=== PATIENT | female | born 1990 | race Caucasian/White ===

== ENCOUNTER 2025-02-23 12:28 | Emergency (ER) | payer SELFPAY ==
--- OUTSIDE RECORDS SUMMARY | 2025-02-24 10:25 | XMS_ITS | Encounter Summary ---
Author Organization [facility] Address [address] [facility] [place] [address] Phone Care Team Providers Care Comb Tender Name Role Phone Marla Vail APRN, CNP Primary Care P rovider Reason for Visit * Reason Comments Medication Refill Encounter Details Date Type Department Care Team (Late st Contact Info) Description 07/18/2022 Refill [facility] - Primary Care - [place] [address] [place] [address] Marla Vail APRN, CNP [address] [place] [address] Medication Refill Social History Tobacco Use Types Packs/Day Years Used Date Smoking Tobacco: Never Smokeless Tobacco: Never Alcohol Use Standard Drinks/Week Comments Yes 0 (1 standard drink = 0.6 oz pur e alcohol) Occasionally AUDIT-C Answer Date Recorded Frequency of Alcohol Consumption Never 12/19/2018 Average Number of Drinks Not on file 019 Frequency of Binge Drinking Not on file 12/09 PHQ-2 Answer Date Recorded Total Score - Questions 1-9 0 06/11 Education Answer Date Recorded What is the highest level of school you have completed or the highest degree you have received? Some college, no degree 06/17/2022 Sexually Active Control Partners Comments Yes I.U.D. Male Comments No Sex and Gender Information Value Date Recorded Sex Assigned at Not on file Legal Sex Female 12:14 AM CDT Gender Identity Not on file Sexual Orientation Not on file COVID-19 Exposure Response Date Recorded In the last 10 days, have yo u been in contact with someone who was confirmed or suspected to have Coronavirus/COVID-19? No / Unsure 06/23/2022 3:33 PM CDT documented as of this encounter Miscellaneous Notes * Telephone Encounter - Linda King RN - 07/20/2022 9:51 AM CDT Medication discontinued 07/13/2022-dose adjustment. documented in this encounter Plan of Treatment Not on file documented as of this encounter Visit Diagnoses Diagnosis Class 2 severe obesity due to excess calories with serious comorbidity and body mass index (BMI) of 38.0 to 38.9 in adult (HCC) documented in this encounter Care Teams Comb Tender Relationship Specialty Start Date End Date Marla Vail APRN, TOUR BUS DRIVER [address] [place] [address] PCP - General Advanced Practice Nurse 06/23/22 documented as of this encounter
--- OUTSIDE RECORDS SUMMARY | 2025-02-24 10:25 | XMS_ITS | Referral Summary ---
Author Organization [facility] Address [address] [place] [id number] Phone Care Team Providers Care Environmental Manager Name Role Phone Marla Vail NP Primary Care Provide r Allergies Active Allergy Reactions Criticality Noted Date Comments Prednisone Vomiting Reaction: Vomit, Medications lisinopriL (PRINIVIL,ZESTRI L) 10 mg tablet Take 1 tablet (10 mg total) by mouth daily 12/16/2022 Active PNV #[id number] acid-dha 35 mg iron-5 mg iron-1 mg capsuleIndicatio ns:Prevention of Neural Tube Defects Take 1 tablet/caps ule by mouth daily 30 capsule 11 09/04/2024 Active Active Problems Problem Noted Date Diagnosed Date Encounter for insertion of Mirena IUD 10/22/2017 Assessment & Plan (10/22/2017 8:03 AM GENETIC TECHNOLOGIST): Urine negative. Please see IUD insertion note. Anxiety 07/12/2017 Assessment & Plan (07/12/2017 8:29 AM CDT): Has done well with lexapro. Will continue Primary insomnia 07/12/2017 Assessment & Plan (07/12/2017 8:30 AM CDT): Will increase Melatonin to 8mg nightly. Encounter for contraceptive management 7 Assessment & Plan (10/22/2017 8:02 AM GENETIC TECHNOLOGIST): Urine test negative. Please see IUD procedure note. Assessment & Plan (07/12/2017 8:29 AM CDT): Has appt set up with Dr. De La Fuente for removal. Planning to start OCPs after. Will send RX into pharmacy BMI 32.0-32.9,adult 07/12/2017 Assessment & Plan (10/22/2017 8:04 AM GENETIC TECHNOLOGIST): Obesity is unchanged. Discussed the patient's BMI. The BMI is above average; BMI management plan is completed. General weight loss/lifestyle modification strategies discussed (elicit support from others; identify saboteurs; non-food rewards, etc). Planning to restart diet with Dr. Shey Chaudhari along with increase in exercise. Assessment & Plan (07/12/2017 8:56 AM CDT): Obesity is increased since last OV, but states has lost 8 lbs. . Discussed the patient's BMI. The BMI is above average; BMI management plan is completed. General weight loss/lifestyle modification strategies discussed (elicit support from others; identify saboteurs; non-food rewards, etc). Immunizations Immunization Administration Dates Next Due DTP 01/28/1996, 3,1991,07/08,1991 Hep B, Adolescent or Pediatric 01/11/2002,2000,05/09/2001 Hib (HbOC) 07/15/1992, 1,1991,04/03 Influenza, Quadrivalent, Spl it, Preservative Free, Intramuscular 07/12/2017 MMR 01/28/1996,07/15/1992 Meningococcal Polysaccharide (Menomune) 05/25/2007 OPV 01/28/1996, 3,1991,07/08,1991 Tdap 04/15/2005 Social History Tobacco Use Types Packs/Day Years Used Date Smoking Tobacco: Never Smokeless Tobacco: Never Tobacco Cessation:Counseling Given: Not Answered Alcohol Use Standard Drinks/Week Comments Yes 0 (1 standard drink = 0.6 oz pur e alcohol) rarely Humiliation, Afraid, Rape, and Kick questionnair e Answer Date Recorded Within the last year, have y ou been afraid of your partner or ex-partner? No 09/23/2023 Within the last year, have y ou been humiliated or emotionally abused in other ways by your partner or ex-partner? No Within the last year, have y ou been kicked, hit, slapped, or otherwise physically hurt by your partner or ex-partner? No 09/23/2023 Within the last year, have y ou been raped or forced to have any kind of sexual activity by your partner or ex-partner? No 09/23/2023 PHQ-2 Answer Date Recorded PHQ-2 Total Score (If total score is 3 or more points, staff should administer the PHQ-9) 0 09/23/2023 Comments No Sex and Gender Information Value Date Recorded Sex Assigned at Not on file Legal Sex Female 10:21 AM GENETIC TECHNOLOGIST Gender Identity Not on file Sexual Orientation Not on file Occupation Industry Job Start Date Job End Date Peer wellness Not on file Not on file Not on file Last Filed Vital Signs Vital Sign Reading Time Taken Comments Blood Pressure 128/82 07/25/2024 12:56 PM CDT Pulse 78 09/29/2023 12:07 PM GENETIC TECHNOLOGIST Temperature 36.2 C (97.1 F) 09/29/2023 12:07 PM GENETIC TECHNOLOGIST Respiratory Rate 14 09/29/2023 12:07 PM GENETIC TECHNOLOGIST Oxygen Saturation 98% 09/29/2023 12:07 PM GENETIC TECHNOLOGIST Inhaled Oxygen Concentration - - Weight 108.9 kg (240 lb) 07/25/2024 12:56 PM CDT Height 170.2 cm (5' 7 ) 07/25/2024 12:56 PM CDT Body Mass Index 37.59 07/25/2024 12:56 PM CDT Plan of Treatment Not on file Insurance * Guarantor: Jing De Jesus Account Type Relation to Patient Date of Phone Billing Address Personal/Family Self [address] [place] [phone] [facility] CHOICE PLUS [facility] HMO/PPO Address: [place] [address] * Guarantor: Jing De Jesus Account Type Relation to Patient Date of Phone Billing Address Personal/Family Self [address] [place] [phone] Care Teams Environmental Manager Relationship Specialty Start Date End Date Marla Vail NP [address] [place], [place] [id number] PCP - General Emergency Medicine 09/29/23
--- OUTSIDE RECORDS SUMMARY | 2025-02-24 10:25 | XMS_ITS | Encounter Summary ---
Author Organization [facility] Address [address] [facility] [place] [address] Phone Care Team Providers Care Spindle Tester Name Role Phone Marla Vail APRN, CNP Primary Care P rovider Reason for Visit * Reason Comments Medication Refill Encounter Details Date Type Department Care Team (Late st Contact Info) Description 01/16/2023 Refill [facility] - Primary Care - [place] [address] [place] [address] Marla Vail APRN, CNP [address] [place] [address] Medication Refill Social History Tobacco [...] suspected to have Coronavirus/COVID-19? No / Unsure 12/17/2022 11:41 AM SOCIAL WORKER PALLIATIVE CARE documented as of this encounter Miscellaneous Notes * Telephone Encounter - Anusha Castillo RN - 01/18/2023 8:47 AM CDT Medication failed the protocol, provider to review and approve the medication order if appropriate. Requested Prescriptions Pending Prescriptions Disp Refills Victoza 18 MG/3ML Solution Pen-injector [Pharmacy Med Name: VICTOZA 3-ELIANA 18 MG/3 ML PEN] Sig: INJECT 0.6 MG UNDER THE SKIN ONCE DAILY FOR 1 WEEK INCREASE WEEKLY IN INCREMENTS OF 0.6 MG/DAYUNTIL MAINTENANCE DOSAGE OF 3 MG ONCE DAILY IS REACHED GLP-1 Agonists Protocol Failed - 01/16/2023 7:03 AM Failed - HgA1C result on record in past 6 months No results found for: HGBA1C Passed - Lipid panel result on file in past 12 months LDL Date Value Ref Range Status 08/13/2022 109 5 - 130 mg/dL Final HDL CHOLESTEROL Date Value Ref Range Status 08/13/2022 42.2 >40 mg/dL Final CHOLESTEROL Date Value Ref Range Status 08/13/2022 166 <=200 mg/dL Final TRIGLYCERIDES Date Value Ref Range Status 08/13/2022 76 <150 mg/dL Final VLDL Date Value Ref Range Status 08/13/2022 15 5 - 55 mg/dL Final CHOL/HDL RATIO Date Value Ref Range Status 08/13/2022 3.9 0.0 - 4.4 Final NON-HDL CHOLESTEROL Date Value Ref Range Status 08/13/2022 123.8 <130 mg/dL Final Passed - Visit with relevant provider in past 6 months or upcoming 90 days Recent Visits Date Type Provider Dept 12/17/22 Office Visit Marla Vail APRN, AUTO BUMPER STRAIGHTENER [facility] 09/16/22 Office Visit Marla Vail APRN, AUTO BUMPER STRAIGHTENER [facility] [employer] [facility] Showing recent visits within past 182 days and meeting all other requirements Future Appointments Date Type Provider Dept 03/26/23 Appointment Marla Vail APRN, CNP [facility] Showing future appointments within next 90 days and meeting all other requirements Passed - GFR on record in past 6 months GFR, EST. NONAFRICAN Date Value Ref Range Status 08/13/2022 >60 >=60 Final documented in this encounter Plan of Treatment Not on file documented as of this encounter Visit Diagnoses Diagnosis Class 2 severe obesity due to excess calories with serious comorbidity and body mass index (BMI) of 35.0 to 35.9 in adult (HCC) documented in this encounter Care Teams Spindle Tester Relationship Specialty Start Date End Date Marla Vail APRN, CNP [address] [place] [address] PCP - General Advanced Practice Nurse 06/23/22 documented as of this encounter
--- OUTSIDE RECORDS SUMMARY | 2025-02-24 10:25 | XMS_ITS | Clinical Summary ---
Author Organization [facility] Address [address] [address] Phone Care Team Providers Care Bladder Cleaner Name Role Phone Marla Vail NP Primary Care Provide r Allergies Active Allergy Reactions Criticality Noted Date Comments Prednisone Vomiting Reaction: Vomit, Medications lisinopriL (PRINIVIL,ZESTRI L) 10 mg tablet Take 1 tablet (10 mg total) by mouth daily 12/16/2022 Active PNV #[id number] acid-dha 35 mg iron-5 mg iron-1 mg capsuleIndicatio ns:Prevention of Neural Tube Defects Take 1 tablet/caps ule by mouth daily 30 capsule 11 09/04/2024 Active Active Problems Problem Noted Date Diagnosed Date Encounter for insertion of Mirena IUD 10/22/2017 Assessment & Plan (10/22/2017 8:03 AM COMMERCIAL LOAN ANALYST): Urine negative. Please see IUD insertion note. Anxiety 07/12/2017 Assessment & Plan (07/12/2017 8:29 AM CDT): Has done well with lexapro. Will continue Primary insomnia 07/12/2017 Assessment & Plan (07/12/2017 8:30 AM CDT): Will increase Melatonin to 8mg nightly. Encounter for contraceptive management 7 Assessment & Plan (10/22/2017 8:02 AM COMMERCIAL LOAN ANALYST): Urine test negative. Please see IUD procedure note. Assessment & Plan (07/12/2017 8:29 AM CDT): Has appt set up with Dr. De La Fuente for removal. Planning to start OCPs after. Will send RX into pharmacy BMI 32.0-32.9,adult 07/12/2017 Assessment & Plan (10/22/2017 8:04 AM COMMERCIAL LOAN ANALYST): Obesity is unchanged. Discussed the patient's BMI. [...] (Menomune) 05/25/2007 OPV 01/28/1996, 3,1991,07/08,1991 Tdap 04/15/2005 Medical History Medical History Date Comments Hx Other Medical wisdom Bacterial vaginosis Family History Medical History Relation Name Comments Other Father Alive and well; Other Mother Alive and well; Hypertension Other Family history of high blood press; Relation Name Status Comments Father Alive Mother Alive Other Social History Tobacco Use Types Packs/Day Years [...] on file Legal Sex Female 10:21 AM COMMERCIAL LOAN ANALYST Gender Identity Not on file Sexual Orientation Not on file Occupation Industry Job Start Date Job End Date Peer wellness Not on file Not on file Not on file Obstetrics History Para Term AB IAB SAB Ectopic Multiple Livin g Live Births 1 1 Date Outcome GA Total Labor Labor/2nd/3rd Weight Sex Type Anes PTL [place] A1 A5 Name Clin Last Filed Vital Signs Vital Sign Reading Time Taken Comments Blood Pressure 128/82 07/25/2024 12:56 PM CDT Pulse 78 09/29/2023 12:07 PM COMMERCIAL LOAN ANALYST Temperature 36.2 C (97.1 F) 09/29/2023 12:07 PM COMMERCIAL LOAN ANALYST Respiratory Rate 14 09/29/2023 12:07 PM COMMERCIAL LOAN ANALYST Oxygen Saturation 98% 09/29/2023 12:07 PM COMMERCIAL LOAN ANALYST Inhaled Oxygen Concentration - - Weight 108.9 kg (240 lb) 07/25/2024 12:56 PM CDT Height 170.2 cm (5' 7 ) 07/25/2024 12:56 PM CDT Body Mass Index 37.59 07/25/2024 12:56 PM CDT Plan of Treatment Health Maintenance Due Date Last Done Comments Cervical Cancer Screening 1991 Hepatitis C Screening 1990 Varicella Vaccines (1 of 2 - 13+ 2-dose series) 02/21/2004 DTaP/Tdap/Td Vaccine (8 - Td or Tdap) 06/06/2024 06/06/2014, 04/15/2005, 01/28/1996, Additional history exists Covid-19 Vaccine ( season) 2024 05/10/2021, 04/19/2021 Depression Screening 09/23/2024 09/23/2023, 10/22/2017, 07/12/2017 Regular Well Visit/Exam 18-64 09/23/2024 09/23/2023 Influenza Vaccine (Season Ended) 2025 07/06/2023, 06/23/2022, 07/12/2017 Hepatitis B Screening Completed 01/11/2002 , 06/20/2001, 05/09/2001 HPV Vaccines Aged Out No longer eligi ble based on patient's age to complete this topic Pneumococcal vaccine <65 Aged Out No longer eligible based on patient's age to complete this topic Insurance [facility] CHOICE PL[facility] HMO/PPO Address: [facility] [address] [place] [address] Care Teams Bladder Cleaner Relationship Specialty Start Date End Date Marla Vail NP [address] [place] [address] PCP - General Emergency Medicine 09/29/23
--- OUTSIDE RECORDS SUMMARY | 2025-02-24 10:25 | XMS_ITS | Clinical Summary ---
Author Organization [facility] Address [address] [place] [address] Phone Care Team Providers Care Machine Tank Operator Name Role Phone Marla Vail APRN, RUDI Primary Care P rovider Allergies Active Allergy Reactions Criticality Noted Date Comments Prednisone Rash,Vomiting Medium 12/19/2018 Medications levonorgestrel (MIRENA) 20 MCG/DAY IUD 1 Each by Intrauterine route. Active Naltrexone-buPR OPion HCl ER (Contrave) 8-90 MG TABLET SR 12 HRIndications:C lass 2 severe obesity due to excess calories with serious comorbidity and body mass index (BMI) of 37.0 to 37.9 in adult (HCC) Start 1 tab by mouth in the am for 1 week, then 1 tab twice daily for 1 week, then 2 tabs in the am and 1 tab in the pm for 1 week, then 2 tabs twice daily 70 Tablet 07/17/20 24 Active lisinopril (PRINIVIL, ZESTRIL) 10 MG TabletIndicatio ns:Essential hypertension Take 1 Tablet by mouth daily. 90 Tablet 1 10/02/20 24 Active escitalopram (LEXAPRO) 10 MG TabletIndicatio ns:Anxiety Take 1 tablet by mouth once daily 90 Tablet 1 01/27/20 25 Active amoxicillin (AMOXIL) 500 MG CapsuleIndicati ons:Dental infection Take 1 Capsule by mouth 2 times daily for 10 days. 20 Capsule 02/20/20 25 2024 Active escitalopram (LEXAPRO) 10 MG TabletIndicatio ns:Anxiety Take 1 Tablet by mouth daily. 90 Tablet 09/04/20 24 2024 Discontinued Active Problems No known active problems Encounters Date Type Department Care Team Description 01/26/2025 Refill [facility] - Primary Care - [place] [address] [address] Marla Vail, BOX REPAIRER, STOCKHOLDER Medication Refill from Last 3 Months Immunizations Immunization Administration Dates Next Due DTP Vaccine 01/28/1996, 3,1991,07/08,1991 Hepatitis B Vaccine 01/11/2002,06/20/2001,2000 Hepatitis B Vaccine,unspecif ied Formulation 01/11/2002,06/20/2001,05/09/2001 Hib (HbOC) 07/15/1992, 1,1991,04/03 Hib Vaccine,unspecified Formulation 02/1992,1991,1991,04/03 Influenza Vaccine, Quadrivalent, PF 07/06/2023,0 06/23/2022 MMR Vaccine 01/28/1996,07/15/1992 Meningococcal Polysaccharide Vaccine (MPSV4) 05/25/2007 OPV 01/28/1996, 3,1991,07/08,1991 TDAP Vaccine 06/06/2014,04/15/2005 Family History Medical History Relation Name Comments High Cholesterol Brother Hypertension Brother High Cholesterol Father Hypertension Father Asthma Maternal Grandfather Hypertension Mother Asthma Paternal Grandfather Asthma Paternal Grandmother Relation Name Status Comments Brother Father Maternal Grandfather Mother Paternal Grandfather Paternal Grandmother Social History Tobacco Use Types Packs/Day Years Used Date Smoking Tobacco: Never Smokeless Tobacco: Never Tobacco Cessation:Counseling Given: No Alcohol Use Standard Drinks/Week Comments Yes 0 (1 standard drink = 0.6 oz pur e alcohol) Occasionally [employer] Utilities Answer Date Recorded In the past 12 months has [employer], gas, oil, or water company threatened to shut off services in your home? No 07/17/2024 Social Connection and Isolat ion Panel [NHANES] Answer Date Recorded In a typical week, how many times do you talk on the phone with family, friends, or neighbors? More than three times a week 07/17/2024 How often do you get togethe r with friends or relatives? Three times a week 07/17/2024 How often do you attend chur ch or tenriism services? Never 07/17/2024 Do you belong to any clubs o r organizations such as quaker groups, unions, fraternal or athletic groups, or school groups? No 07/17/2024 How often do you attend meet ings of the clubs or organizations you belong to? Never 07/17/2024 Are you , , di vorced, , never , or living with a partner? Living with partner 07/17/2024 AUDIT-C Answer Date Recorded Q1: How often do you have a drink containing alc ohol? 2-4 times a month 07/17/2024 Q2: How many drinks containi ng alcohol do you have on a typical day when you are drinking? 3 or 4 07/17/2024 Q3: How often do you have si x or more drinks on one occasion? Less than monthly 07/17/2024 Overall Financial Resource Strain (CARDIA) Answe r Date Recorded How hard is it for you to pa y for the very basics like food, housing, medical care, and heating? Not very hard 07/17/2024 PHQ-2 Answer Date Recorded Total Score - Questions 1-9 0 06/11 [facility] Answer Date Recorded Do you feel stress - tense, restless, nervous, or anxious, or unable to sleep at night because your mind is troubled all the time - these days? To some extent 07/17/2024 Exercise Vital Sign Answer Date Recorde d On average, how many days pe r week do you engage in moderate to strenuous exercise (like a brisk walk)? 2 days 07/17/2024 On average, how many minutes do you engage in exercise at this level? 30 min 07/17/2024 Hunger Vital Sign Answer Date Recorded Within the past 12 months, y ou worried that your food would run out before you got the money to buy more. Never true 10/07/20 24 Within the past 12 months, t he food you bought just didn't last and you didn't have money to get more. Never true 07/17/2024 PRAPARE - Transportation Answer Date Re corded In the past 12 months, has l ack of transportation kept you from medical appointments or from getting medications? No 04/2024 In the past 12 months, has l ack of transportation kept you from meetings, work, or from getting things needed for daily living? No 07/17/2024 Housing Stability Vital Sign Answer Marcos e Recorded In the last 12 months, was t here a time when you were not able to pay the mortgage or rent on time? No 01/10/2024 Number of Places Lived in the Last Year Not on f ile 01/10/2024 In the last 12 months, was t here a time when you did not have a steady place to sleep or slept in a fdc (including now)? No 01/10/2024 Housing Stability Vital Sign Answer Marcos e Recorded In the last 12 months, was t here a time when you were not able to pay the mortgage or rent on time? No 07/17/2024 In the past 12 months, how m any times have you moved where you were living? 1 07/17/2024 At any time in the past 12 m [facility], were you homeless or living in a fdc (including now)? No 07/17/2024 Education Answer Date Recorded What is the [...] on file Sexual Orientation Not on file Last Filed Vital Signs Vital Sign Reading Time Taken Comments Blood Pressure 122/78 01/10/2024 10:48 AM CDT Pulse 79 01/10/2024 10:48 AM CDT Temperature 37.2 C (99 F) 01/10/2024 10:48 AM CDT Respiratory Rate 20 01/10/2024 10:48 AM CDT Oxygen Saturation 96% 01/10/2024 10:48 AM CDT Inhaled Oxygen Concentration - - Weight 107.5 kg (237 lb) 07/17/2024 1:23 PM CDT Height 170.2 cm (5' 7 ) 07/17/2024 1:23 PM CDT Body Mass Index 37.12 07/17/2024 1:23 PM CDT Plan of Treatment Health Maintenance Due Date Last Done Comments Hepatitis C Virus (HCV) Screening 1990 Pap Smear 02/21/2012 DTaP/Tdap/Td Immunization (8 - Td or Tdap) 06/06/2024 06/06/2014, 04/15/2005, 01/28/1996, Additional history exists SARS-COV-2 Immunization ( season) 2024 10/25/2021, 05/10/2021, 04/19/2021 Influenza Immunization (Season Ended) 2025 07/06/2023, 06/23/2022 Cervical Cancer Screening (CCS) 09/23/2028 HPV/Cotest 09/23/2028 09/23/2023 Respiratory Syncytial Virus (RSV) Immunization (Adult) (1 - 1-dose 75+ series) 2066 Hepatitis B Immunization Completed 002, 01/11/2002, 06/20/2001, Additional history exists Meningococcal Immunization (ACWY) Aged Out 05/25/2007 No longer eligible based on patient's age to complete this topic Human Papillomavirus (HPV) Immunization Aged Out No longer eligible based on patient's age to complete this topic Pneumococcal Immunization Combined Aged Out No longer eligible based on patient's age to complete this topic Rotavirus Immunization Aged Out No lo nger eligible based on patient's age to complete this topic Insurance [facility] Care Teams Machine Tank Operator Relationship Specialty Start Date End Date Marla Vail APRN, STOCKHOLDER [address] [place] [address] PCP - General Advanced Practice Nurse 06/23/22
== END 2025-02-23 12:50 | disposition home or self-care (01) ==
PROVIDERS: Emergency Provider Nurse Practitioner
DX: B34.9 Viral infection, unspecified (principal); R09.82 Postnasal drip; Z20.822 Contact with and (suspected) exposure to COVID-19; I10 Essential (primary) hypertension; F41.9 Anxiety disorder, unspecified
CPT/HCPCS: 87426; 87637; 87804; 99212; G0463